=== PATIENT | male | born 1980 | race Caucasian/White ===

== ENCOUNTER 2021-05-23 23:31 | Inpatient (IN) | payer OTHER ==
[~2021-05-23] VITALS: Ht 188 cm; Wt 127.0 kg
--- NOTE | 2021-05-24 00:39 | NUR ---
PATIENT BIBSELF C/O RIGHT HAND WOUND X 4 DAYS, FELT WORST TODAY. PATIENT IS A/O X 4, RR EVEN AND UNLABORED, NO SOB NOTED. PATIENT CONNECTED TO [employer]ID[employer] MONITOR AND POX.
--- NOTE | 2021-05-24 00:40 | NUR ---
YUSUF COVARRUBIAS AT PT'S BEDSIDE
[2021-05-24] MEDS ORDERED: VANCOMYCIN 1 GM VIAL ONE (00:45)
[2021-05-24] MEDS ORDERED: VANCOMYCIN 1 GM in IV D5W 250 ML IV ONE (01:00)
--- NOTE | 2021-05-24 01:05 | NUR ---
LFA #18G S/L; PATEMT AND INTACT. BLOOD AND COVID ANTIGEN SWAB COLLECTED AND GIVEN TO LAB
[2021-05-24 01:18] LABS: BASOPHILS % (AUTO) 0.4 % (0.0-2.0); EOSINOPHILS % (AUTO) 1.9 % (0.0-6.0); HEMATOCRIT 42 % (39-51); HEMOGLOBIN 14.1 g/dL (13.5-17.5); LYMPHOCYTES # (AUTO) 2.6 K/uL (0.8-4.8); LYMPHOCYTES % (AUTO) 25.2 % (20.0-44.0); MEAN CORPUSCULAR HGB CONC 33 g/dl (31.0-36.0); MEAN CORPUSCULAR VOLUME 86 fL (80-96); MONOCYTES # (AUTO) 0.8 K/uL (0.1-1.30); NEUTROPHILS # (AUTO) 6.7 K/uL (1.8-8.9); NEUTROPHILS % (AUTO) 64.5 % (43.0-81.0); PLATELET COUNT (AUTO) 248 K/uL (150-450); RED BLOOD CELL COUNT(AUTO) 4.94 MIL/uL (4.5-6.0); WHITE BLOOD COUNT (AUTO) 10.4 K/uL (4.3-11.0)
[2021-05-24 01:51] LABS: CALCIUM, SERUM 8.7 mg/dL (8.5-10.1); CREATININE 1.3 mg/dL (0.6-1.3); POTASSIUM 3.4 mmol/L (3.5-5.1)
--- NOTE | 2021-05-24 01:56 | NUR ---
CLINICALS INFORMATION RELAYED TO LACIE VARNISH SUPERVISOR. PT IS AUTHORIZED TO STAY. VERBAL AUTH PER LACIE
[2021-05-24 02:03] LABS: ALBUMIN 3.4 g/dL (3.4-5.0); BILIRUBIN,DIRECT 0.2 mg/dL (0.0-0.2); BILIRUBIN,TOTAL 0.8 mg/dL (0.2-1.0); TOTAL PROTEIN, SERUM 7.8 g/dL (6.4-8.2)
--- NOTE | 2021-05-24 02:05 | NUR ---
EPIC PANEL PAGED
[2021-05-24] MEDS ORDERED: MAGNESIUM HYDROXIDE 30 ML UDC PO PRN (02:30)
[2021-05-24] MEDS ORDERED: Z GUARD REMEDY 4 OZ OINT TP PRN (02:30)
[2021-05-24] MEDS ORDERED: MORPHINE SULFATE INJ 2 MG/ML DISP.SYRIN IV PRN (02:30)
[2021-05-24] MEDS ORDERED: ACETAMINOPHEN 325 MG TABLET PO PRN (02:30)
[2021-05-24] MEDS ORDERED: ONDANSETRON HCL/PF 4 MG/2 ML VIAL IVP PRN (02:30)
[2021-05-24] MEDS ORDERED: MAG HYDROX/AL HYDROX/SIMETH 30 ML UDC PO PRN (02:30)
[2021-05-24] MEDS: IV NS 0.9% 1,000 ML IV PRN ×2 (05:52→16:28)
--- NOTE | 2021-05-24 06:54 | NUR ---
PT SLEEPING IN BED. ON R/A; TOLERATING WELL WITH NO SOB AT 100%. NO S/SX OF PAIN AT THIS TIME. DRESSING TO R HAND KEPT C/D/I. LFA #18G NS @75ML/HR; PATENT AND INTACT. PT CONNECTED TO MONITOR AND POX. SAFETY MEASURES IN PLACE; BED IN LOWEST LOCKED POSITION, SIDE RAILS UPX2, CALL LIGHT WITHIN EASY REACH. ALL NEEDS MET AT THIS TIME. WILL ENDORSE MICHELLE TO ONCOMING MORNING RN
[2021-05-24] MEDS ORDERED: POTASSIUM CHLORIDE 20 MEQ TAB.PRT.SR PO SCH (09:30)
--- NOTE | 2021-05-24 09:52 | NUR ---
WOUND CARE CONSULT: PT PRESENTS WITH REDNESS, SWELLING AND PURULENT DRAINAGE TO RT HAND KNUCKLE AREA OF INDEX FINGER, PRESENT ON ADMISSION. DEFER TO PMD FOR GENERAL SURGERY CONSULT. DISCUSSED WITH NURSING STAFF. DRY DRESSING IN PLACE AT THIS TIME. Addendum: 05/24/21 at 1015 by JACE BARBER WNDNU DISCUSSED WITH RN AND TEMPERING MACHINE OPERATOR. SURGICAL CONSULT MADE TO DR FER RENDON FOR RT HAND WOUND.
[2021-05-24] MEDS ORDERED: PANTOPRAZOLE 40 MG TABLET.DR PO ONE (09:54)
[2021-05-24] MEDS ORDERED: POTASSIUM CHLORIDE 20 MEQ TAB.PRT.SR PO ONE (09:55)
[2021-05-24] MEDS: PANTOPRAZOLE 40 MG TABLET.DR PO SCH (09:56)
--- NOTE | 2021-05-24 11:29 | NUR ---
BED ASSIGNED IS 320-1
--- NOTE | 2021-05-24 11:34 | NUR ---
REPORT GIVEN TO TAMIR AMES FOR MICHELLE
[2021-05-24 12:20] VITALS: BP 158/101
--- NOTE | 2021-05-24 12:20 | NUR ---
TRANSFERRED TO [facility] IN STABLE CONDITION
--- NOTE | 2021-05-24 12:20 | NUR ---
m/s ms sql server developer: admission admitted this 41 year old male pt from [facility] with dx: right hand cellulitis. pt wearing own clothes. pt awake, ambulatory, a/ox4. right hand with slight redness and swelling; noted 4the digit finger with wound. oriented to room and surrounding. no c/o pain at this time. will continue to monitor.
[2021-05-24] MEDS ORDERED: LIDOCAINE 2%-EPI 1:100,000 30 ML VIAL TP STA (12:24)
--- NOTE | 2021-05-24 12:35 | NUR ---
m/s budget coordinator: surgeon consult pat (chairlift operator) at bedside and informed pt that needs to do incision and drainage to right hand, 4th finger. pt agreed and consent signed. all supplies provided and place it at bedside.
--- NOTE | 2021-05-24 12:42 | NUR ---
m/s paramedical aide: notes time out initiated and agreed on by pt, nurse, and web application developer. pat (web application developer) at bedside and performing incision and drainage of right hand 4th digit (finger).
[2021-05-24] MEDS: VANCOMYCIN 1.25 GM in IV D5W 250 ML IV SCH ×2 (13:19→23:54)
--- NOTE | 2021-05-24 14:00 | NUR ---
m/s java j2ee application developer: notes in bed sounds asleep. no distress noted. will continue to monitor.
--- NOTE | 2021-05-24 19:05 | NUR ---
m/s oil lease buyer: notes bedside report given to peg (rn) for continuity of care.
[2021-05-24 20:00] VITALS: BP 135/75
--- NOTE | 2021-05-25 04:24 | NUR ---
closing nursing notes:slept thru the night denies pain changing his own position in the bed independently RT hand s/p I/N/D wrapped in gauze dressing no drainage this 12 hours fingers exposed movement and feelin present fingers warm capillary refill < 3 sec
[2021-05-25 07:09] LABS: BASOPHILS # (AUTO) 0.1 K/uL (0.0-0.2); BASOPHILS % (AUTO) 0.7 % (0.0-2.0); EOSINOPHILS % (AUTO) 2.4 % (0.0-6.0); HEMATOCRIT 41 % (39-51); HEMOGLOBIN 13.5 g/dL (13.5-17.5); LYMPHOCYTES # (AUTO) 2.3 K/uL (0.8-4.8); LYMPHOCYTES % (AUTO) 28.9 % (20.0-44.0); MEAN CORPUSCULAR HGB CONC 33 g/dl (31.0-36.0); MEAN CORPUSCULAR VOLUME 85 fL (80-96); MONOCYTES # (AUTO) 0.6 K/uL (0.1-1.30); MONOCYTES % (AUTO) 8.1 % (2.0-12.0); NEUTROPHILS # (AUTO) 4.7 K/uL (1.8-8.9); NEUTROPHILS % (AUTO) 59.9 % (43.0-81.0); PLATELET COUNT (AUTO) 230 K/uL (150-450); RED BLOOD CELL COUNT(AUTO) 4.74 MIL/uL (4.5-6.0); WHITE BLOOD COUNT (AUTO) 7.9 K/uL (4.3-11.0)
[2021-05-25 07:53] LABS: ALBUMIN 2.9 g/dL (3.4-5.0); BILIRUBIN,TOTAL 0.4 mg/dL (0.2-1.0); CALCIUM, SERUM 8.5 mg/dL (8.5-10.1); CREATININE 1.1 mg/dL (0.6-1.3); MAGNESIUM 2.2 mg/dL (1.8-2.4); PHOSPHORUS 3.5 mg/dL (2.5-4.9); POTASSIUM 4.1 mmol/L (3.5-5.1)
--- NOTE | 2021-05-25 08:12 | NUR ---
MS RN OPENING NOTE Patient in bed, asleep. A/O x 4. On room air, breathing evenly and unlabored. No SOB or s/s of distress noted. IV access on LFA #18G infusing NS at 75 ml/hr. Right hand dressing c/d/i. Safety precautions in place: bed in low, locked position; siderails up x 2; call light within reach. Will continue to monitor.
[2021-05-25 08:30] VITALS: BP 123/67
[2021-05-25] MEDS: PANTOPRAZOLE 40 MG TABLET.DR PO SCH (08:38)
[2021-05-25] MEDS: HYDROCODONE/APAP 5/325MG TABLET PO PRN ×2 (08:56→15:50)
[2021-05-25] MEDS: VANCOMYCIN 1.25 GM in IV D5W 250 ML IV SCH (12:00)
[2021-05-25] MEDS ORDERED: SULF1TAB48 PO (12:54)
[2021-05-25] MEDS: IV NS 0.9% 1,000 ML IV PRN (12:59)
[2021-05-25 16:02] VITALS: BP 146/87
--- NOTE | 2021-05-25 16:40 | NUR ---
DISCHARGE NOTE Received order for discharge. Patient is A/O x 4, able to make needs known. Stable on room air, no SOB or s/s of distress noted. Discharge instructions given verbally and in written form, verbalized understanding. All belongings accounted for, belonging sheet signed. Patient refused photo to be taken on Right hand. IV access removed, catheter tip intact; pressure dressing applied, no signs of bleeding noted. Exitcare folder given to patient. Patient left in stable condition with friend via private car.
== END 2021-05-25 18:30 | disposition home or self-care (01) | DRG 364 ==
LOC: ER 23:38 → TRANSITION 05-24 04:52 → MED 05-24 11:57
PROVIDERS: ADMIT Internal Medicine; ATTEND Internal Medicine
PROC: 0J9J0ZZ Drainage of Right Hand Subcutaneous Tissue and Fascia, Open Approach (ICD-10-PCS; principal; 2021-05-24)
DX: L02.511 Cutaneous abscess of right hand (principal); E66.9 Obesity, unspecified; L03.113 Cellulitis of right upper limb; E87.6 Hypokalemia; Z20.822 Contact with and (suspected) exposure to COVID-19; I10 Essential (primary) hypertension; Z68.35 Body mass index [BMI] 35.0-35.9, adult; R73.9 Hyperglycemia, unspecified
CPT/HCPCS: 36415; 73130-TC; 80048-TC; 80053-TC; 80076-TC; 80202-TC; 83605-TC; 83735-TC; 84100-TC; 85025-TC; 87040-TC; 87070-TC; 87081-TC; A6407; C9803; G0378; J2270; J2405; J3370; J3490; J7030; J7050; J7060